=== PATIENT | male | born 1955 | race Caucasian/White ===

== ENCOUNTER 2023-07-30 12:55 | Outpatient (CLI) | payer MEDICARE | END 2023-07-30 12:56 | disposition home or self-care (01) | LOC: NM 12:55 | PROVIDERS: ATTEND Family Medicine | DX: R10.11 Right upper quadrant pain (principal) | CPT/HCPCS: 78227; A9537 ==

== ENCOUNTER 2023-08-31 06:05 | Day surgery (SDC) | payer MEDICARE ==
[2023-08-26 13:15] VITALS: BMI 24.3
[2023-08-31] MEDS ORDERED: Acetaminophen 500 MG TAB ONE (06:18)
[2023-08-31] MEDS ORDERED: Ketorolac Tromethamine 30 MG/ML VIAL ONE ×2 (06:18→08:10)
[2023-08-31] MEDS ORDERED: EPINEPHrine 1 MG/ML VIAL ONE (06:42)
[2023-08-31] MEDS ORDERED: Bupivacaine PF 0.5% 30 ML VIAL ONE (06:43)
[2023-08-31] MEDS ORDERED: Bupivacaine 0.25% HCL 30 ML VIAL ONE (06:47)
[2023-08-31] MEDS ORDERED: HYDROmorphone 0.5 MG/0.5 ML SYRINGE ONE ×3 (06:57→10:20)
[2023-08-31] MEDS ORDERED: fentaNYL PF 100 MCG/2 ML SYRINGE ONE (06:57)
[2023-08-31] MEDS ORDERED: CEFAZOLIN 2 GM VIAL ONE (07:40)
[2023-08-31] MEDS ORDERED: Sodium Chloride 0.9% 100 ML ONE (07:40)
[2023-08-31] MEDS ORDERED: PROPOFOL 200 MG/20 ML VIAL ONE (08:10)
[2023-08-31] MEDS ORDERED: Rocuronium Bromide 10 MG/ML (10ML VIAL) ONE (08:10)
[2023-08-31] MEDS ORDERED: Dexamethasone 20 MG/5 ML VIAL ONE (08:10)
[2023-08-31] MEDS ORDERED: Glycopyrrolate 0.2 MG/ML 5 ML SYRINGE ONE (08:10)
[2023-08-31] MEDS ORDERED: Ondansetron PF 4 MG/2 ML Vial ONE (08:10)
[2023-08-31] MEDS ORDERED: Lidocaine 1% PF 5 ML VIAL ONE (08:10)
[2023-08-31] MEDS ORDERED: PHENYLEPHRINE-NS 100 MCG/ML 10 ML SYRINGE ONE (08:10)
[2023-08-31] MEDS ORDERED: SUGAMMADEX SODIUM 200 MG/2 ML VIAL ONE (08:19)
[2023-08-31] MEDS ORDERED: Iopamidol 0 ML FS ONE (08:56)
[2023-08-31] MEDS ORDERED: Iopamidol 15 ML ONE ×2 (08:58→08:59)
[2023-08-31] MEDS ORDERED: fentaNYL 50 mcg/mL 1 mL Vial ONE (09:53)
== END 2023-08-31 11:51 | disposition home or self-care (01) ==
LOC: SDC 06:05
PROVIDERS: ATTEND Specialist
PROC: 0FT44ZZ Resection of Gallbladder, Percutaneous Endoscopic Approach (ICD-10-PCS; principal; 2023-08-31)
PROC: BF11YZZ Fluoroscopy of Biliary and Pancreatic Ducts using Other Contrast (ICD-10-PCS; 2023-08-31)
DX: K80.10 Calculus of gallbladder with chronic cholecystitis without obstruction (principal); K82.8 Other specified diseases of gallbladder; E78.5 Hyperlipidemia, unspecified; Z79.899 Other long term (current) drug therapy; Z90.89 Acquired absence of other organs; Z88.8 Allergy status to other drugs, medicaments and biological substances
CPT/HCPCS: 47532; 47563; C1889; J0171; J3010; 88304; J1100; J1170; J1885; J2405; J2704; J3490; Q9966; Q9967; S0020